=== PATIENT | female | born 1935 | race Caucasian/White ===

== ENCOUNTER 2016-11-15 23:52 | Emergency (ER) | payer MEDICARE, OTHER ==
[2016-11-16] MEDS ORDERED: Hydromorphone 1 mg/ml Ampule IV ONE (00:16)
[2016-11-16] MEDS ORDERED: Phenergan 25 MG INJ IV ONE (00:16)
--- NOTE | 2016-11-16 00:23 | ERPHSYRPT ---
- History of Present Illness Time Seen by Provider: 11/16/16 00:10 Historian: patient Exam Limitations: no limitations Patient Subjective Stated Complaint: REPORTS THAT SHE HAS RECENTLY BEEN DX WITH H. PYLORI ET IS NOW TAKING PRILOSEC BUT TONIGHT HAS RUQ ET EPIGASTRIC PAIN THAT IS UNBEARABLE TONIGHT, STATES THAT THE PAIN ONSET X 1 MONTH Triage Nursing Assessment: AMBULATORY TO TREATMENT AREA - STEADY GAIT. MOVES ALL EXTREMITIES WITH EQUAL STRENGTH. ALERT/ORIENTED - PLEASANT AFFECT. SKIN PWD - NO RASH/INJURY. RESPS EASY - NON-LABORED Physician History: PT STATES SHE HAS HAD RUQ ABDOMINAL PAIN IN AUGUST 2016, NONE LAST MONTH AND SHARP CONSTANT RUQ ABDOMINAL PAIN FOR THE PAST 6 HOURS WITH NAUSEA. PT ALSO STATES SHE HAS HAD INTERMITTENT SHORTNESS OF AIR FOR THE PAST WEEK. LAST BM WAS YESTERDAY & WNL. DENIES FEVER, HEADACHE, COUGH, VOMITING. Allergies/Adverse Reactions: No Known Drug Allergies Allergy (Unverified 11/16/16 00:03) Hx Tetanus, Diphtheria Vaccination/Date Given: No Hx Influenza Vaccination/Date Given: Yes Hx Pneumococcal Vaccination/Date Given: Yes Immunizations Up to Date: Yes - Review of Systems Constitutional: No Fever Respiratory: Dyspnea, No Cough Abdominal/Gastrointestinal: Abdominal Pain, No Vomiting, No Diarrhea Neurological: No Headache All Other Systems: Reviewed and Negative - Past Medical History Pertinent Past Medical History: Yes Cardiac History: Hypertension GI Medical History: GERD - Past Surgical History Past Surgical History: Yes Gastrointestinal: Appendectomy, Cholecystectomy Musculoskeletal: Orthopedic Surgery Other Surgical History: LEFT ANKLE - Social History Smoking Status: Never smoker Exposure to second hand smoke: No Drug Use: none Patient Lives Alone: No - Female History Hx Last Menstrual Period: N/A - Nursing Vital Signs Nursing Vital Signs: Initial Vital Signs Temperature 99.8 F Temperature Source Oral Pulse Rate 95 Respiratory Rate 18 Blood Pressure [] 171/81 Pain Intensity 6 - Physical Exam General Appearance: alert Eye Exam: PERRL/EOMI Ears, Nose, Throat Exam: pharynx normal, moist mucous membranes Neck Exam: normal inspection Respiratory Exam: lungs clear, airway intact Cardiovascular Exam: normal heart sounds Gastrointestinal/Abdomen Exam: soft, normal bowel sounds, tenderness (MILD RUQ ABDOMINAL TENDERNESS) Back Exam: normal range of motion Extremity Exam: normal inspection, No pedal edema Neurologic Exam: alert, cooperative Skin Exam: warm, dry SpO2 Interpretation: normal SpO2: 99 Oxygen Delivery: Room Air - Course Nursing assessment & vital signs reviewed: Yes EKG Interpreted by Me: RATE (78), Sinus Rhythm, NORMAL AXIS, NORMAL QRS - Radiology Exams Chest X-ray Interpretation: Interpreted by me, No Pneumonia - CT Exams Abdomen/Pelvis CT Interpretation: Tele-radiologist Report (HEPATOMEGALY AND WITH ABNORMAL APPEARING LIVER, 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 LIVER NEOPLASM IS INCLUDED IN THE DIFFERENTIAL.) Ordered Tests: Active Orders 24 hr Category Date Time Status EKG-ER Only STAT Care 11/16/16 00:17 Active IV Insertion STAT Care 11/16/16 00:16 Active ABDOMEN AND PELVIS W/0 CONTRAS [CT] Stat Exams 11/16/16 00:16 Taken CHEST 1 VIEW (PORTABLE) Stat Exams 11/16/16 00:18 Taken AMYLASE Stat Lab 11/16/16 00:33 Completed CBC W DIFF Stat Lab 11/16/16 00:33 Completed CMP Stat Lab 11/16/16 00:33 Completed LIPASE Stat Lab 11/16/16 00:33 Completed MAG [MAGNESIUM] Stat Lab 11/16/16 00:33 Completed TROPONIN Stat Lab 11/16/16 00:33 Completed UA Stat Lab 11/16/16 00:30 Completed Medication Summary Generic Name Dose Route Start Last Admin Trade Name Freq PRN Reason Stop Dose Admin Sodium Chloride 1,000 mls @ 100 mls/hr 11/16/16 00:30 11/16/16 00:46 Sodium Chloride 0.9% 1000 Ml IV 12/16/16 00:29 100 mls/hr .Q10H AMANDA Administration Discontinued Medications Generic Name Dose Route Start Last Admin Trade Name Freq PRN Reason Stop Dose Admin Hydromorphone HCl 1 mg 11/16/16 00:16 11/16/16 00:46 Hydromorphone 1 Mg/Ml Ampule IV 11/16/16 00:17 1 mg STAT ONE Administration Hydromorphone HCl Confirm 11/16/16 00:44 Hydromorphone 1 Mg/Ml Ampule Administered 11/16/16 00:45 Dose 1 mg .ROUTE .STK-MED ONE Promethazine HCl 12.5 mg 11/16/16 00:16 11/16/16 00:45 Phenergan 25 Mg Inj IV 11/16/16 00:17 12.5 mg STAT ONE Administration Promethazine HCl Confirm 11/16/16 00:44 Phenergan 25 Mg Inj Administered 11/16/16 00:45 Dose 25 mg .ROUTE .STK-MED ONE Lab/Rad Data: Laboratory Result Diagrams 11/16/16 00:33 11/16/16 00:33 Laboratory Results 11/16/16 11/16/16 11/16/16 Range/Units 00:33 00:33 00:33 WBC 8.4 (4.0-10.5) K/mm3 RBC 4.47 (4.1-5.4) M/mm3 Hgb 12.2 (12.0-16.0) gm/dl Hct 38.4 (35-47) % MCV 85.9 (78-100) fl MCH 27.3 (26-32) pg MCHC 31.8 L (32-36) g/dl RDW 13.8 (11.5-14.0) % Plt Count 245 (150-450) K/mm3 MPV 10.1 H (6-9.5) fl Gran % 73.5 H (36.0-66.0) % Lymphocytes % 14.2 L (24.0-44.0) % Monocytes % 9.2 (0.0-12.0) % Eosinophils % 2.9 (0.00-5.0) % Basophils % 0.2 (0.0-0.4) % Basophils # 0.02 (0-0.4) Sodium 140 (136-145) mEq/L Potassium 3.8 (3.5-5.1) mEq/L Chloride 101 (98-107) mEq/L Carbon Dioxide 28.6 (21-32) mEq/L Anion Gap 13.9 (5-15) MEQ/L BUN 12 (9-20) mg/dL Creatinine 0.91 (0.55-1.30) mg/dl Estimated GFR > 60 ML/MIN Glucose 116 H (70-110) MG/DL Calcium 9.1 (8.5-10.1) mg/dL Magnesium 2.0 (1.8-2.4) mg/dL Total Bilirubin 0.6 (0.2-1.0) mg/dL AST 41 H (15-37) U/L ALT 22 (12-78) U/L Alkaline Phosphatase 360 H (46-116) U/L Troponin I < 0.017 (0.000-0.056) ng/ml Serum Total Protein 7.5 (6.4-8.2) gm/dL Albumin 3.7 (3.4-5.0) g/dL Amylase 45 (25-115) U/L Lipase 85 (73-393) U/L Ur Collection Type Urine Color (YELLOW) Urine Appearance (CLEAR) Urine pH (5-6) Ur Specific [place] (1.005-1.025) Urine Protein (Negative) Urine Glucose (UA) (NEGATIVE) mg/dL Urine Ketones (NEGATIVE) Urine Nitrite (NEGATIVE) Urine Bilirubin (NEGATIVE) Urine Urobilinogen (0-1) mg/dL Urine WBC (Auto) (NEGATIVE) Urine RBC (Auto) (0-5) Deshawn/ul Specimen Received 11/16/16 Range/Units 00:30 WBC (4.0-10.5) K/mm3 RBC (4.1-5.4) M/mm3 Hgb (12.0-16.0) gm/dl Hct (35-47) % MCV (78-100) fl MCH (26-32) pg MCHC (32-36) g/dl RDW (11.5-14.0) % Plt Count (150-450) K/mm3 MPV (6-9.5) fl Gran % (36.0-66.0) % Lymphocytes % (24.0-44.0) % Monocytes % (0.0-12.0) % Eosinophils % (0.00-5.0) % Basophils % (0.0-0.4) % Basophils # (0-0.4) Sodium (136-145) mEq/L Potassium (3.5-5.1) mEq/L Chloride (98-107) mEq/L Carbon Dioxide (21-32) mEq/L Anion Gap (5-15) MEQ/L BUN (9-20) mg/dL Creatinine (0.55-1.30) mg/dl Estimated GFR ML/MIN Glucose (70-110) MG/DL Calcium (8.5-10.1) mg/dL Magnesium (1.8-2.4) mg/dL Total Bilirubin (0.2-1.0) mg/dL AST (15-37) U/L ALT (12-78) U/L Alkaline Phosphatase (46-116) U/L Troponin I (0.000-0.056) ng/ml Serum Total Protein (6.4-8.2) gm/dL Albumin (3.4-5.0) g/dL Amylase (25-115) U/L Lipase (73-393) U/L Ur Collection Type CLEAN CATCH Urine Color YELLOW (YELLOW) Urine Appearance CLEAR (CLEAR) Urine pH 6.0 (5-6) Ur Specific [place] 1.015 (1.005-1.025) Urine Protein NEGATIVE (Negative) Urine Glucose (UA) NEGATIVE (NEGATIVE) mg/dL Urine Ketones NEGATIVE (NEGATIVE) Urine Nitrite NEGATIVE (NEGATIVE) Urine Bilirubin NEGATIVE (NEGATIVE) Urine Urobilinogen 0.2 (0-1) mg/dL Urine WBC (Auto) NEGATIVE (NEGATIVE) Urine RBC (Auto) NEGATIVE (0-5) Deshawn/ul Specimen Received 11/16/16:0030 - Departure Time of Disposition: 02:42 Departure Disposition: Home Clinical Impression: RUQ ABDOMINAL PAIN, DYSPNEA, GERD, HTN Condition: Fair Critical Care Time: No Referrals: Melodie PHILIP [Primary Care Provider] - Instructions: Abdominal Pain-Adult Additional Instructions: FOLLOW UP WITH PRIVATE DOCTOR TOMORROW.
[2016-11-16] MEDS ORDERED: Sodium Chloride 0.9% 1000 ML 1,000 ML IV SCH (00:30)
[2016-11-16] MEDS ORDERED: Phenergan 25 MG INJ ONE (00:44)
[2016-11-16] MEDS ORDERED: Hydromorphone 1 mg/ml Ampule ONE (00:44)
[2016-11-16] MEDS ORDERED: Sodium Chloride 0.9% 1000 ML 1,000 ML ONE (00:44)
[2016-11-16 00:48] LABS: BASOPHIL % 0.2 % (0.0-0.4); Eosinophil % 2.9 % (0.00-5.0); Granulocytes % 73.5 % (36.0-66.0); Lymphocytes % 14.2 % (24.0-44.0); Mean Cell Volume 85.9 fl (78-100); Mean Corpuscular Hemoglobin 27.3 pg (26-32); Mean Platelet Volume 10.1 fl (6-9.5); Monocytes % 9.2 % (0.0-12.0); Platelet Count 245 K/mm3 (150-450); Red Blood Count 4.47 M/mm3 (4.1-5.4); Red Cell Distribution Width 13.8 % (11.5-14.0); White Blood Count 8.4 K/mm3 (4.0-10.5)
[2016-11-16 00:54] LABS: COMPLETE URINE MICROSCOPIC? NO; Collection Type CLEAN CATCH
[2016-11-16 01:09] LABS: ALBUMIN 3.7 g/dL (3.4-5.0); ALKALINE PHOSPHATASE 360 U/L (46-116); ANION GAP 13.9 MEQ/L (5-15); BILIRUBIN,TOTAL 0.6 mg/dL (0.2-1.0); BLOOD UREA NITROGEN 12 mg/dL (9-20); CHLORIDE 101 mEq/L (98-107); Carbon Dioxide 28.6 mEq/L (21-32); Glucose 116 MG/DL (70-110); LIPASE 85 U/L (73-393); Potassium 3.8 mEq/L (3.5-5.1); SGOT/AST 41 U/L (15-37); SGPT/ALT 22 U/L (12-78); SODIUM 140 mEq/L (136-145); Total Protein 7.5 gm/dL (6.4-8.2)
[2016-11-16 01:12] LABS: TROPONIN < 0.017 ng/ml (0.000-0.056)
[2016-11-16 03:18] VITALS: BP 139/65; PULSE 80; O2SAT 96
--- NOTE | 2016-11-16 09:50 | XRAY ---
Indication: Short of breath. Lower chest/abdomen pain. Comparison: None Portable chest demonstrates right hemidiaphragm elevation with adjacent atelectasis. Remaining lungs clear. Heart is not enlarged. Vascularity normal. Bony thorax intact with mild osteopenia. Impression: Right hemidiaphragm elevation with adjacent atelectasis. No acute cardiopulmonary abnormalities.
--- NOTE | 2016-11-16 09:56 | XRAY ---
Indication: Right upper abdominal pain. Multiple contiguous axial images obtained through the abdomen and pelvis without contrast as ordered. Comparison: None Lung bases demonstrates bibasilar atelectasis/scarring. No consolidation or effusion. Heart is borderline enlarged. Noncontrasted stomach and bowel loops appear nonobstructed. Mild/moderate diffuse scattered colonic fecal debris throughout. Scattered sigmoid diverticulosis without diverticulitis. Appendix not seen. Liver demonstrates diffuse patchy hypoattenuations scattered throughout worrisome for malignancy. Tiny perihepatic fluid present as well as small pelvic free fluid. No walled off fluid collection or free air. There has been previous cholecystectomy. Hepatic/splenic calcified granulomas. Pancreas is fatty replaced. Remaining adrenal glands, kidneys, ureters, bladder, and uterus appear unremarkable for noncontrast exam. Mild aortoiliac calcifications without AAA. Osseous structures intact with moderate degenerative changes throughout the spine. Impression: 1. Diffuse patchy hypoattenuations throughout the liver worrisome for malignancy. Small perihepatic and pelvic free fluid that may or may not be related. 2. Fecal stasis without obstruction. Sigmoid diverticulosis. Comment: Preliminary interpretation was made by [facility]. No discrepancy. CT DI 12.87
== END 2016-11-16 03:18 | disposition home or self-care (01) ==
LOC: ED 23:52
DX: R10.11 Right upper quadrant pain (principal); R06.00 Dyspnea, unspecified; K21.9 Gastro-esophageal reflux disease without esophagitis; I10 Essential (primary) hypertension
CPT/HCPCS: 36000; 36415; 71010; 74176; 80053; 81002; 82150; 83690; 83735; 84484; 85025; 93005; 96360; 96361; 96374; 96375; 99284; J1170; J2550